=== PATIENT | female | born 1995 | race African-American/Black ===

== ENCOUNTER 2019-06-10 01:18 | Emergency (ER) | payer OTHER, SELFPAY ==
--- NOTE | ~2019-06-10 | XR_ITS ---
EXAMINATION: XR knee RT min 4V DATE: 06/10/2019 02:21 INDICATION: Right knee pain. TECHNIQUE: 4 views of right knee were obtained. COMPARISON: None. FINDINGS: Bone alignment is normal. No fracture. Joint spaces are well maintained. There is no knee j oint effusion. IMPRESSION: 1. Normal right knee. Reviewed, dictated and finalized at location A. MASTER IMPRESSION: 1. Normal right knee.
--- NOTE | ~2019-06-10 | XR_ITS ---
EXAMINATION: XR knee LT min 4V DATE: 06/10/2019 02:21 INDICATION: Left knee pain. TECHNIQUE: 4 views of left knee were obtained. COMPARISON: None. FINDINGS: Bone alignment is normal. No fracture. Joint spaces are well maintained. There is no knee j oint effusion. IMPRESSION: 1. Normal left knee. Reviewed, dictated and finalized at location A. OR [employer] DEVELOPER IMPRESSION: 1. Normal left knee.
[2019-06-10 01:26] VITALS: BP 123/78; PULSE 77; RESP 20; TEMP 36.8; O2SAT 100
--- NOTE | 2019-06-10 01:52 | ED.EXTPRO ---
HPI - Extremity Problem General Chief complaint: Extremity Injury, Lower Stated complaint: bilateral knee pain Time Seen by Provider: 06/10/19 01:22 Source: patient and RN notes reviewed Mode of arrival: ambulatory Limitations: no limitations History of Present Illness HPI Narrative: Pt is a 24 y/o female who presents to the ED with c/o bilateral knee pain starting 2 days ago. She notes that she previously ran track and cheered, stating that she has had knee complications previously. Pt notes that she hasn't had any recent injuries to her knees, but does state that she has been working on her feet a lot recently. She reports pain in the anterior medial aspect of her bilateral knees for the past 2 days. Pt states that she has still been able to walk with her pain. She currently denies any ankle pain, hip pain, or numbness/tingling. Pt states that she hasn't taken any pain medications for her symptoms. MD Complaint: joint paint Onset (ago): day(s) (2) Pain Consistency: constant Location: knee (bilateral) Associated symptoms: denies other symptoms Related Data Allergies Allergy/AdvReac Type Severity Reaction Status Date / Time No Known Allergies Allergy Verified 06/10/19 01:29 Review of Systems Review of Systems: All systems reviewed & are unremarkable except as noted in HPI and below Musculoskeletal: Musculoskeletal: Reports arthralgias (Reports: bilateral knee pain. Denies: hip pain or ankle pain) Neurologic: Denies numbness and Denies tingling PMFSH Past Medical History Medical History Healthy female adult Surgical History Surgical History Hx of tonsillectomy Social History Social History Smoking status: Never smoker Exam Narrative: Exam Narrative: APPEARANCE: No acute distress, nontoxic, resting in bed Eyes: EOMI HEENT: Normocephalic, atraumatic, RESPIRATORY: No respiratory distress MUSCULOSKELETAl: Tender palpation of the bilateral lateral knees, no swelling or ecchymosis, no tenderness over the anterior medial or posterior knee, full flexion extension of the bilateral knees, no tenderness of bilateral ankles or hips, dorsalis pedis pulse 2+, neurovascular intact, no swelling or ecchymosis seen no overlying erythema NEURO: Awake and alert. Following commands, speech normal, no focal deficits SKIN:: Warm, dry. Normal Color no rash or lesions Course Course Emergency Course: Discussed with patient results of workup and diagnosis. Discussed need for follow-up with primary care, proper use of medication, and reasons to return to the emergency department. Patient understands and agrees to current treatment plan Vital Signs Vital signs: Vital Signs Temperature 98.2 F 06/10/19 01:26 Pulse Rate 77 06/10/19 01:26 Respiratory Rate 20 06/10/19 01:26 Blood Pressure 123/78 06/10/19 01:26 Pulse Oximetry 100 06/10/19 01:26 Temperature 98.2 F 06/10/19 01:26 Pulse Rate 77 06/10/19 01:26 Respiratory Rate 20 06/10/19 01:26 Blood Pressure 123/78 06/10/19 01:26 Pulse Oximetry 100 06/10/19 01:26 MDM - Extremity (Nontraumatic) Imaging Data Attestation: I personally reviewed and interpreted this imaging study as follows: My impression: Rt Knee X-Ray IMPRESSION: No acute fracture. Lt Knee X-Ray IMPRESSION: No acute fracture. Discharge Plan Discharge Clinical Impression: Acute pain of right knee, Acute pain of left knee Patient Disposition: Home, Self-Care Condition: Stable Instructions: Antibiotic Form, Knee Pain (ED) Additional Instructions: Return for increasing pain numbness tingling of the extremities or any other symptoms of concern Prescriptions: New ibuprofen [IBU] 600 mg tablet 600 mg PO Q6H PRN (Reason: pain) Qty: 20 RF: 0 Follow-up/Referrals: Joe Bejarano MD [Physician] - (Follow-up in 1 to 2 days for fu
[2019-06-10] MEDS: IBUPROFEN 600 MG TABLET PO (02:00)
[2019-06-10 02:43] VITALS: BP 122/82; PULSE 70; RESP 20; O2SAT 100
== END 2019-06-10 02:47 | disposition home or self-care (01) ==
PROVIDERS: Emergency Provider Emergency Medicine
DX: M25.561 Pain in right knee (principal); M25.562 Pain in left knee
CPT/HCPCS: 73564; 99284; A9270